=== PATIENT | male | born 1990 | race Caucasian/White ===

== ENCOUNTER 2024-06-15 14:19 | Emergency (ER) | payer OTHER ==
[~2024-06-15] VITALS: Ht 190.5 cm; Wt 84.8 kg
[2024-06-15] VITALS (19 sets, daily range): BP systolic 107–134; BP diastolic 55–110
[2024-06-15] MEDS ORDERED: DiphenhydrAMINE HCL 50 MG/ML SDV IV STA (14:29)
[2024-06-15] MEDS ORDERED: methylPREDNISolone SODIUM SUCC 125 MG/2 ML SDV IV STA (14:29)
[2024-06-15] MEDS ORDERED: EPINEPHrine HCL 1 MG/ML AMP IM STA (14:29)
[2024-06-15] MEDS ORDERED: FAMOTIDINE 10MG/ML 2ML SDV IV STA (14:29)
[2024-06-15] MEDS ORDERED: SODIUM CHLORIDE 0.9% 1,000 ML IV ONE (14:30)
[2024-06-15 14:45] LABS: BASO% 0.7 % (0-3); EOS% 4.2 % (0-8); HEMATOCRIT 44.7 % (39.0-50.0); HEMOGLOBIN 15.5 g/dl (14.0-18.0); IMMATURE GRANULOCYTES 0.3 % (0.0-5.0); LYMPH% 29.6 % (15-41); MEAN CELL VOLUME 88.3 fL CALC (80.0-100.0); MEAN CORPUSCULAR HGB 30.6 pG CALC (26.0-32.0); MEAN CORPUSCULAR HGB CONC 34.7 g/dL CAL (32.0-36.0); MONO% 5.8 % (2-13); NEUT# 4.49 thou/uL (1.82-7.42); NEUT% 59.4 % (42-76); RED BLOOD COUNT 5.06 mill/uL (4.70-6.10); RED CELL DISTRI WIDTH 12.4 % (11.5-15.5)
[2024-06-15 15:04] LABS: ALBUMIN 4.8 g/dL (3.2-5.0); BILIRUBIN, TOTAL 0.8 mg/dL (0.2-1.3); CREATININE 0.9 mg/dL (0.7-1.3); POTASSIUM 4.1 mmol/l (3.5-5.1); TOTAL PROTEIN 7.7 g/dL (6.3-8.2)
[2024-06-15] MEDS ORDERED: PREDNISONE20 MG PO (18:42)
== END 2024-06-15 19:00 | disposition home or self-care (01) | DRG 918 ==
LOC: ED 14:19
PROVIDERS: Nurse Practitioner
DX: T63.421A Toxic effect of venom of ants, accidental (unintentional), initial encounter (principal); L50.0 Allergic urticaria; Y92.89 Other specified places as the place of occurrence of the external cause; Y99.0 Civilian activity done for income or pay; Z91.030 Bee allergy status